=== PATIENT | female | born 1955 | race Caucasian/White ===

== ENCOUNTER 2018-04-28 19:26 | Emergency (ER) | payer MEDICARE ==
[~2018-04-28] VITALS: Ht 160 cm; Wt 52.2 kg
[~2018-04-28 19:26] MED LIST: ARIP10 PO; Abilify2 MG PO; Omeprazole20 M1 PO; PANT40 PO; QUET25 PO
[2018-04-28] MEDS ORDERED: NITR100CA PO (22:04)
[2018-04-28 22:52] LABS: Source, Urine Voided
[2018-04-28 22:53] LABS: Bilirubin, Urine Neg (Neg); Blood, Urine Neg (Neg); Glucose Qualitative, Urine Neg (Neg); Ketones, Urine Neg (Neg); Leukocyte Esterase, Urine 2+ (Neg); Nitrite, Urine Neg (Neg); Protein, Urine Neg (Neg); Urobilinogen, Urine NORM (Normal)
[2018-04-28 22:59] LABS: Appearance, Urine Clear (Clear); Bacteria Rare /hpf; Color, Urine Pale Yellow (P-Yellow); Red Blood Cells, Urine Not Seen /hpf (0-2); Squamous Epithelial Cells Few /hpf (Few)
== END 2018-04-28 22:41 | disposition home or self-care (01) ==
LOC: ER 19:26
PROVIDERS: Emergency Medicine
DX: N39.0 Urinary tract infection, site not specified (principal); K21.9 Gastro-esophageal reflux disease without esophagitis; F17.210 Nicotine dependence, cigarettes, uncomplicated; Z88.0 Allergy status to penicillin; Z88.5 Allergy status to narcotic agent; Z88.6 Allergy status to analgesic agent; Z88.8 Allergy status to other drugs, medicaments and biological substances
CPT/HCPCS: 81001; 87086; 99284

== ENCOUNTER 2018-10-04 08:02 | Emergency (ER) | payer MEDICARE ==
[~2018-10-04] VITALS: Ht 157.5 cm; Wt 48.5 kg
[~2018-10-04 08:02] MED LIST changes: +NITR100CA PO
[2018-10-04 09:42] LABS: Source, Urine Clean Catch
[2018-10-04 09:46] LABS: Bilirubin, Urine Neg (Neg); Blood, Urine 3+ (Neg); Glucose Qualitative, Urine Neg (Neg); Ketones, Urine 1+ (Neg); Leukocyte Esterase, Urine 3+ (Neg); Nitrite, Urine Neg (Neg); Protein, Urine 2+ (Neg); Urobilinogen, Urine 1+ (Normal)
[2018-10-04 10:04] LABS: Appearance, Urine Hazy (Clear); Color, Urine Yellow (P-Yellow)
[2018-10-04 10:11] LABS: Bacteria Mod /hpf; Granular Casts 0-2 /lpf (0); Mucus Light (0-Heavy); Squamous Epithelial Cells Mod /hpf (Few); Trichomonas Mod /hpf
[2018-10-04 10:12] LABS: Calcium Oxalate Crystals Many /hpf
[2018-10-04] MEDS ORDERED: Macrobid 100 M100 MG PO (10:18)
== END 2018-10-04 10:25 | disposition home or self-care (01) ==
LOC: ER 08:02
PROVIDERS: Emergency Medicine
DX: T69.9XXA Effect of reduced temperature, unspecified, initial encounter (principal); N30.00 Acute cystitis without hematuria; M25.531 Pain in right wrist; Z59.0 Homelessness; Z88.0 Allergy status to penicillin; Z88.8 Allergy status to other drugs, medicaments and biological substances; Z88.6 Allergy status to analgesic agent; F17.200 Nicotine dependence, unspecified, uncomplicated
CPT/HCPCS: 73110; 81001; 87086

== ENCOUNTER 2018-10-04 12:56 | Emergency (ER) | payer MEDICARE ==
[~2018-10-04] VITALS: Ht 157.5 cm; Wt 48.5 kg
[~2018-10-04 12:56] MED LIST changes: +Macrobid 100 M100 MG PO
== END 2018-10-04 15:45 | disposition left against medical advice (07) ==
LOC: ER 12:56
DX: Z53.21 Procedure and treatment not carried out due to patient leaving prior to being seen by health care provider (principal); R42 Dizziness and giddiness; R51 Headache

== ENCOUNTER 2018-10-17 00:49 | Emergency (ER) | payer MEDICARE ==
[~2018-10-17] VITALS: Ht 157.5 cm; Wt 48.5 kg
[2018-10-17 06:04] LABS: Source, Urine Clean Catch
[2018-10-17 06:06] LABS: Bilirubin, Urine Neg (Neg); Blood, Urine 2+ (Neg); Glucose Qualitative, Urine Neg (Neg); Ketones, Urine Neg (Neg); Leukocyte Esterase, Urine 3+ (Neg); Nitrite, Urine Neg (Neg); Protein, Urine Neg (Neg); Specific Gravity, Urine 1.015 (1.003-1.022); Urobilinogen, Urine NORM (Normal)
[2018-10-17 06:08] LABS: Appearance, Urine Clear (Clear); Color, Urine Yellow (P-Yellow)
[2018-10-17 06:11] LABS: Red Blood Cells, Urine 0-2 /hpf (0-2); Squamous Epithelial Cells Few /hpf (Few)
[2018-10-17 06:12] LABS: Bacteria Mod /hpf; Trichomonas Few /hpf
== END 2018-10-17 06:45 | disposition home or self-care (01) ==
LOC: ER 00:49
PROVIDERS: Emergency Medicine
DX: A59.01 Trichomonal vulvovaginitis (principal); R05 Cough; Z88.0 Allergy status to penicillin; Z88.8 Allergy status to other drugs, medicaments and biological substances; F17.210 Nicotine dependence, cigarettes, uncomplicated
CPT/HCPCS: 71046; 81001; 87086; 96372; 99283-25; J0696

== ENCOUNTER 2018-11-08 13:34 | Emergency (ER) | payer MEDICARE ==
[~2018-11-08] VITALS: Ht 157.5 cm; Wt 49.9 kg
[2018-11-08 14:30] LABS: BASOPHILS ABSOLUTE AUTO 0.02 K/mm3 (0.00-0.23); BASOPHILS PERCENT AUTO 0 % (0-2); EOSINOPHILS ABSOLUTE AUTO 0.17 K/mm3 (0.00-0.68); EOSINOPHILS PERCENT AUTO 2 % (0-6); Hemoglobin 15.2 g/dL (11.5-16.0); IMMATURE GRAN ABSOLUTE AUTO 0.04 K/mm3 (0.00-0.10); IMMATURE GRAN PERCENT AUTO 0 % (0-1); LYMPHOCYTES PERCENT AUTO 33 % (21-46); MONOCYTES ABSOLUTE AUTO 0.71 K/mm3 (0.16-1.47); MONOCYTES PERCENT AUTO 7 % (4-13); Mean Corpuscular HGB 32.6 pg (26.0-34.0); Mean Corpuscular Volume 99 fL (80-100); Mean Platelet Volume 11.1 fL (9.1-12.4); NEUTROPHILS ABSOLUTE AUTO 5.69 K/mm3 (1.96-9.15); NEUTROPHILS PERCENT AUTO 57 % (41-73); Platelet Count 255 K/mm3 (150-400); RDW Coefficient Variation 12.1 % (11.7-14.2); RDW Standard Deviation 43.8 fL (35.1-46.3); Red Blood Cell Count 4.66 M/mm3 (3.80-5.20); White Blood Cell Count 9.93 K/mm3 (4.00-11.30)
[2018-11-08 15:00] LABS: Alanine Aminotransfer (ALT/SGP 20 U/L (12-78); Alk Phos 104 U/L (50-136); Anion Gap 8 mmol/L (6-16); Aspartate Aminotrans (AST/SGOT 24 U/L (12-37); Bilirubin, Total 0.4 mg/dL (0.1-1.0); Blood Urea Nitrogen 15 mg/dL (8-24); Bun/Creatinine Ratio 20.1 (12.0-20.0); CO2, Blood 26 mmol/L (21-32); Chloride, Blood 105 mmol/L (98-108); Creatinine, Blood 0.75 mg/dL (0.40-1.00); Globulin, Blood 4.2 g/dL (2.2-4.0); Glomerular Filtration Rate >60 (60-); Glucose, Blood 151 mg/dL (70-99); Potassium, Blood 3.5 mmol/L (3.5-5.5); Sodium, Blood 139 mmol/L (136-145); Total Protein, Blood 8.2 g/dL (6.4-8.2)
[2018-11-08] MEDS ORDERED: Bactrim Ds Tab1 EACH PO (16:29)
[2018-11-08] MEDS ORDERED: CEPH500 PO (16:29)
== END 2018-11-08 16:49 | disposition home or self-care (01) ==
LOC: ER 13:34
PROVIDERS: Physician Assistant
DX: L03.011 Cellulitis of right finger (principal); Z23 Encounter for immunization; K21.9 Gastro-esophageal reflux disease without esophagitis; F17.200 Nicotine dependence, unspecified, uncomplicated; Z88.0 Allergy status to penicillin; Z88.6 Allergy status to analgesic agent; Z88.8 Allergy status to other drugs, medicaments and biological substances
CPT/HCPCS: 36415; 73120; 80053; 85025; 99284-25